=== PATIENT | male | born 1995 | race Caucasian/White ===

== ENCOUNTER 2017-05-21 15:09 | Emergency (ER) | payer SELFPAY ==
[~2017-05-21] VITALS: Ht 177.8 cm; Wt 82.0 kg
[2017-05-21 15:57] VITALS: BP 147/82; PULSE 98; RESP 18; TEMP 98.5; O2SAT 98
[2017-05-21 16:11] LABS: BASOPHIL # 0.1 TH/MM3 (0-0.2); BASOPHIL % 0.9 % (0.0-2.0); EOSINOPHIL # 0.1 TH/MM3 (0-0.4); EOSINOPHIL % 1.4 % (0.0-4.0); HEMATOCRIT 50.1 % (39.0-51.0); HEMO FLAGS DIFF FINAL; LYMPH % 33.9 % (9.0-44.0); LYMPHOCYTE # 3.5 TH/MM3 (1.0-4.8); MEAN CELL VOLUME 93.6 FL (80.0-100.0); MEAN CORPUSCULAR HEMOGLOBIN 32.6 PG (27.0-34.0); MEAN CORPUSCULAR HGB CONC 34.9 % (32.0-36.0); MONO % 5.6 % (0.0-8.0); NEUT % 58.2 % (16.0-70.0); PLATELET COUNT 234 TH/MM3 (150-450); RED BLOOD COUNT 5.35 MIL/MM3 (4.50-5.90); RED CELL DISTRIBUTION WIDTH 13.3 % (11.6-17.2); WHITE BLOOD COUNT 10.4 TH/MM3 (4.0-11.0)
[2017-05-21 16:37] LABS: BICARBONATE 22.2 MEQ/L (21.0-32.0); POTASSIUM 3.5 MEQ/L (3.5-5.1)
--- NOTE | 2017-05-21 16:52 | PD ---
HPI Chief Complaint: Psychiatric Symptoms Time Seen by Provider: 15:39 Travel History International Travel<30 days: No Contact w/Intl Traveler<30days: No Traveled to known affect area: No History of Present Illness HPI 22-year-old male presents to the emergency room under Adrian act initiated by police. Patient states he called a hotline to vent about his cheating on him. He was very depressed. Patient cut himself superficially multiple times on his left forearm. When asked if he did this to commit suicide, he said he was just doing it to prove a point. The next thing he knew, superintendent operations division were beating on his door and brought him to the ED. Denies suicidal or homicidal ideation. Denies any medical conditions. Denies any medical complaints. Denies any daily medications. Denies illicit drug use. Drinks alcohol occasionally. He had 5 beers today. PFSH Past Medical History Medical History: Denies Significant Hx Past Surgical History Surgical History: No Previous Surgery Social History Alcohol Use: Yes (OCC) Tobacco Use: No Substance Use: No Review of Systems Except as stated in HPI: all other systems reviewed are Neg Physical Exam Narrative GENERAL: Well-nourished, well-developed male in no acute distress. Afebrile. Ambulatory. SKIN: Focused skin assessment warm/dry. Multiple superficial abrasions to the left volar forearm. Nonbleeding. HEAD: Normocephalic. EYES: No scleral icterus. No injection or drainage. NECK: Supple, trachea midline. No JVD or lymphadenopathy. CARDIOVASCULAR: Regular rate and rhythm without murmurs, gallops, or rubs. RESPIRATORY: Breath sounds equal bilaterally. No accessory muscle use. PSYCHIATRIC: No delusional thought processes. No hallucinations. Depressed mood. Normal affect. Data Data Last Documented VS Vital Signs Date Time Temp Pulse Resp B/P (MAP) Pulse Ox O2 Delivery O2 Flow Rate FiO2 05/21/17 16:01 98 18 05/21/17 15:57 98.5 147/82 (103) 98 Orders Orders Complete Blood Count With Diff (05/21/17 15:39) Basic Metabolic Panel (Bmp) (05/21/17 15:39) Psych Screen (05/21/17 15:39) Drug Screen, Random Urine (05/21/17 15:39) Alcohol (Ethanol) (05/21/17 15:39) Labs Laboratory Tests Test 05/21/17 15:53 White Blood Count 10.4 TH/MM3 Red Blood Count 5.35 MIL/MM3 Hemoglobin 17.5 GM/DL Hematocrit 50.1 % Mean Corpuscular Volume 93.6 FL Mean Corpuscular Hemoglobin 32.6 PG Mean Corpuscular Hemoglobin Concent 34.9 % Red Cell Distribution Width 13.3 % Platelet Count 234 TH/MM3 Mean Platelet Volume 8.4 FL Neutrophils (%) (Auto) 58.2 % Lymphocytes (%) (Auto) 33.9 % Monocytes (%) (Auto) 5.6 % Eosinophils (%) (Auto) 1.4 % Basophils (%) (Auto) 0.9 % Neutrophils # (Auto) 6.0 TH/MM3 Lymphocytes # (Auto) 3.5 TH/MM3 Monocytes # (Auto) 0.6 TH/MM3 Eosinophils # (Auto) 0.1 TH/MM3 Basophils # (Auto) 0.1 TH/MM3 CBC Comment DIFF FINAL Differential Comment Blood Urea Nitrogen 9 MG/DL Creatinine 1.01 MG/DL Random Glucose 140 MG/DL Calcium Level 8.7 MG/DL Sodium Level 139 MEQ/L Potassium Level 3.5 MEQ/L Chloride Level 106 MEQ/L Carbon Dioxide Level 22.2 MEQ/L Anion Gap 11 MEQ/L Estimat Glomerular Filtration Rate 91 ML/MIN Urine Opiates Screen NEG Urine Barbiturates Screen NEG Urine Amphetamines Screen NEG Urine Benzodiazepines Screen NEG Urine Cocaine Screen NEG Urine Cannabinoids Screen NEG Ethyl Alcohol Level 265 MG/DL MDM Medical Decision Making Medical Screen Exam Complete: Yes Emergency Medical Condition: Yes Medical Record Reviewed: Yes Differential Diagnosis Mood disorder, personality disorder, suicidal ideation, polysubstance abuse Narrative Course 22-year-old male presents to the emergency room under Adrian act initiated by police department. Patient called the suicide? hotline complaining about his 's infidelity and abruptly ended the call. Shortly afterward, the police showed up at his door and took him into protective custody after they saw multiple superficial abrasions to his left wrist. States he cut his arms to prove a point. He denies suicidal or homicidal ideations at this time. Denies any psychiatric or medical history. No medical complaints. CBC, CMP, drug screen are unremarkable. Alcohol is moderately elevated. Patient is medically cleared for psychiatric evaluation. Diagnosis Primary Impression: Medical clearance for psychiatric admission Condition: Stable Dominga Torres May 21, 2017 16:52
[2017-05-21 18:09] VITALS: BP 132/96; PULSE 92; RESP 20; TEMP 98.8; O2SAT 98
--- NOTE | 2017-05-21 21:07 | PD ---
Physical Exam Date Seen by Provider: May 21, 2017 Time Seen by Provider: 21:05 Data Data Last Documented VS Vital Signs Date Time Temp Pulse Resp B/P (MAP) Pulse Ox O2 Delivery O2 Flow Rate FiO2 05/21/17 18:09 98.8 92 20 132/96 (108) 98 Orders Orders Complete Blood Count With Diff (05/21/17 15:39) Basic Metabolic Panel (Bmp) (05/21/17 15:39) Psych Screen (05/21/17 15:39) Drug Screen, Random Urine (05/21/17 15:39) Alcohol (Ethanol) (05/21/17 15:39) Labs Laboratory Tests Test 05/21/17 15:53 White Blood Count 10.4 TH/MM3 Red Blood Count 5.35 MIL/MM3 Hemoglobin 17.5 GM/DL Hematocrit 50.1 % Mean Corpuscular Volume 93.6 FL Mean Corpuscular Hemoglobin 32.6 PG Mean Corpuscular Hemoglobin Concent 34.9 % Red Cell Distribution Width 13.3 % Platelet Count 234 TH/MM3 Mean Platelet Volume 8.4 FL Neutrophils (%) (Auto) 58.2 % Lymphocytes (%) (Auto) 33.9 % Monocytes (%) (Auto) 5.6 % Eosinophils (%) (Auto) 1.4 % Basophils (%) (Auto) 0.9 % Neutrophils # (Auto) 6.0 TH/MM3 Lymphocytes # (Auto) 3.5 TH/MM3 Monocytes # (Auto) 0.6 TH/MM3 Eosinophils # (Auto) 0.1 TH/MM3 Basophils # (Auto) 0.1 TH/MM3 CBC Comment DIFF FINAL Differential Comment Blood Urea Nitrogen 9 MG/DL Creatinine 1.01 MG/DL Random Glucose 140 MG/DL Calcium Level 8.7 MG/DL Sodium Level 139 MEQ/L Potassium Level 3.5 MEQ/L Chloride Level 106 MEQ/L Carbon Dioxide Level 22.2 MEQ/L Anion Gap 11 MEQ/L Estimat Glomerular Filtration Rate 91 ML/MIN Urine Opiates Screen NEG Urine Barbiturates Screen NEG Urine Amphetamines Screen NEG Urine Benzodiazepines Screen NEG Urine Cocaine Screen NEG Urine Cannabinoids Screen NEG Ethyl Alcohol Level 265 MG/DL [facility] Medical Record Reviewed: Yes Supervised Visit with MANUEL: Yes Interpretation(s) Laboratory Tests Test 05/21/17 15:53 White Blood Count 10.4 TH/MM3 Red Blood Count 5.35 MIL/MM3 Hemoglobin 17.5 GM/DL Hematocrit 50.1 % Mean Corpuscular Volume 93.6 FL Mean Corpuscular Hemoglobin 32.6 PG Mean Corpuscular Hemoglobin Concent 34.9 % Red Cell Distribution Width 13.3 % Platelet Count 234 TH/MM3 Mean Platelet Volume 8.4 FL Neutrophils (%) (Auto) 58.2 % Lymphocytes (%) (Auto) 33.9 % Monocytes (%) (Auto) 5.6 % Eosinophils (%) (Auto) 1.4 % Basophils (%) (Auto) 0.9 % Neutrophils # (Auto) 6.0 TH/MM3 Lymphocytes # (Auto) 3.5 TH/MM3 Monocytes # (Auto) 0.6 TH/MM3 Eosinophils # (Auto) 0.1 TH/MM3 Basophils # (Auto) 0.1 TH/MM3 CBC Comment DIFF FINAL Differential Comment Blood Urea Nitrogen 9 MG/DL Creatinine 1.01 MG/DL Random Glucose 140 MG/DL Calcium Level 8.7 MG/DL Sodium Level 139 MEQ/L Potassium Level 3.5 MEQ/L Chloride Level 106 MEQ/L Carbon Dioxide Level 22.2 MEQ/L Anion Gap 11 MEQ/L Estimat Glomerular Filtration Rate 91 ML/MIN Urine Opiates Screen NEG Urine Barbiturates Screen NEG Urine Amphetamines Screen NEG Urine Benzodiazepines Screen NEG Urine Cocaine Screen NEG Urine Cannabinoids Screen NEG Ethyl Alcohol Level 265 MG/DL Differential Diagnosis MDM: High Differential diagnoses: Schizophrenia, schizoaffective disorder, bipolar, anxiety, depression, adjustment reaction, mood disorder NOS, ODD, depressive disorder NOS, dementia, dementia with agitation, psychosis NOS, substance induced mood disorder, DMDD, Asperger syndrome, infection,electrolyte abnormality, malingering. Narrative Course Mental health screening discussed with the patient. Psychiatric screen ordered. The patient's been evaluated by psychiatry. She is medically stable for discharge. She does not warrant inpatient treatment and management. Patient has been advised to be discharged. Diagnosis Primary Impression: Medical clearance for psychiatric admission Patient Instructions: General Instructions Additional Instruction: Follow-up with the recommendations of the psych screener. Return to the ER for any problems. Scripts No Active Prescriptions or Reported Meds Disposition: 01 DISCHARGE HOME Condition: Stable Garrett Stahl May 21, 2017 21:07
--- NOTE | 2017-05-21 21:17 | PD ---
History of Present Illness Chief Complaint: Psychiatric Symptoms Time Seen by Provider: 20:45 Travel History International Travel<30 Days: No Contact w/Intl Traveler<30days: No Known affected area: No Legal Status Legal Status: Adrian Act Adrian Act Signed By: Jaclyn Rincon History of Present Illness: History of Present Illness HPI 22-year-old male with no previous psychiatric history who presents to the emergency room under Adrian act initiated by police. The report alleges that the police responded to a call from a suicidal subject to had cut his arm. The patient reported to the police that he was feeling depressed due to recent breakup with his and finding out his was contacting other person 's. Patient had been drinking at the time and his blood alcohol level on arrival to the emergency department was 265. He admits to having consumed approximately 5 beers. Patient states he called a hotline to vent about his cheating on him. The patient was allowed to sober up and was monitored. No behavioral concerns and no suicidality. Electronic medical record reviewed and shows no previous contact with [facility] psychiatry Department. Patient is seen. He is calm, engaging, cooperative. He is clinically sober at this time. Speech is clear and he has no tremors, steady gait. The patient presents no disturbance of thought process or content. Denies any hallucinations, delusions or paranoia. He denies any significant symptoms of depression. Denies suicidal or homicidal ideation, intent or plan. He is cognitively intact. He tells me that he was trying to get his attention and that he considers what he did" a stupid mistake". He is requesting to be discharged and presents no criteria to remain under the Adrian act. His [id number] will pick him up and he will be staying with her tonight. PFSH Past Medical History Medical History: Denies Significant Hx Past Surgical History Surgical History: No Previous Surgery Psychiatric History Psychiatric History Hx Psychiatric Treatment: Denies any previous. No previous suicidal attempt. History of Inpatient Treatment: No Guns or firearms in home: No Social History male. Has been in relationship for 5 years and since January. Moved from [place] to [place] 2 months ago. Completed 11th grade. Currently unemployed. Hx Alcohol Use: Yes (OCC) Hx Tobacco Use: No Hx Substance Use: Yes Substance Use Type: Alcohol Other Substances Used: Drink fridays and saturdays Hx of Substance Use Treatment: No Family Psychiatric History Negative Allergies-Medications (Allergen,Severity, Reaction): Coded Allergies: No Known Allergies (Verified Allergy, Unknown, 05/21/17) Reported Meds & Prescriptions Reported Meds & Active Scripts Active No Active Prescriptions or Reported Medications Review of Systems Except as stated in HPI: all other systems reviewed are Neg Mental Status Examination Appearance: Appropriate Consciousness: Alert Orientation: x4 Motor Activity: Normal gait Speech: Unremarkable Language: Adequate Fund of Knowledge: Adequate Attention and Concentration: Adequate Memory: Unremarkable Mood: Appropriate Affect: Appropriate Thought Process & Associations: Intact Thought Content: Appropriate Hallucination Type: None Delusion Type: None Suicidal Ideation: No Suicidal Plan: No Suicidal Intention: No Homicidal Ideation: No Homicidal Plan: No Homicidal Intention: No Insight: Adequate Judgment: Impulsive MDM Medical Decision Making Medical Record Reviewed: Yes Assessment/Plan 22-year-old male with no previous psychiatric history who presents to the emergency room under Adrian act initiated by police. The report alleges that the police responded to a call from a suicidal subject to had cut his arm. The patient reported to the police that he was feeling depressed due to recent breakup with his and finding out his was contacting other person 's. Patient had been drinking at the time and his blood alcohol level on arrival to the emergency department was 265. He admits to having consumed approximately 5 beers. Patient states he called a hotline to vent about his cheating on him. The patient was allowed to sober up and was monitored. No behavioral concerns and no suicidality. The patient denies any suicidal or homicidal ideation, intent or plan. He is future oriented with adequate protective factors. States he is looking forward to his mother moving to [place] in September. He has good support from his [id number] will be picking him up from the hospital. There is no evidence of any unstable mental illness as defined under the Adrian act. He does not meet criteria to remain under the Adrian act. He is requesting to be discharged. Patient is psychiatrically clear for discharge from ED. Orders Orders Complete Blood Count With Diff (11/21/17 15:39) Basic Metabolic Panel (Bmp) (05/21/17 15:39) Psych Screen (05/21/17 15:39) Drug Screen, Random Urine (05/21/17 15:39) Alcohol (Ethanol) (05/21/17 15:39) Results Vital Signs Date Time Temp Pulse Resp B/P (MAP) Pulse Ox O2 Delivery O2 Flow Rate FiO2 05/21/17 21:06 05/21/17 18:09 98.8 92 20 132/96 (108) 98 05/21/17 16:01 98 18 05/21/17 15:57 98.5 98 18 147/82 (103) 98 Laboratory Tests Test 05/21/17 15:53 White Blood Count 10.4 Red Blood Count 5.35 Hemoglobin 17.5 Hematocrit 50.1 Mean Corpuscular Volume 93.6 Mean Corpuscular Hemoglobin 32.6 Mean Corpuscular Hemoglobin Concent 34.9 Red Cell Distribution Width 13.3 Platelet Count 234 Mean Platelet Volume 8.4 Neutrophils (%) (Auto) 58.2 Lymphocytes (%) (Auto) 33.9 Monocytes (%) (Auto) 5.6 Eosinophils (%) (Auto) 1.4 Basophils (%) (Auto) 0.9 Neutrophils # (Auto) 6.0 Lymphocytes # (Auto) 3.5 Monocytes # (Auto) 0.6 Eosinophils # (Auto) 0.1 Basophils # (Auto) 0.1 CBC Comment DIFF FINAL Differential Comment Blood Urea Nitrogen 9 Creatinine 1.01 Random Glucose 140 Calcium Level 8.7 Sodium Level 139 Potassium Level 3.5 Chloride Level 106 Carbon Dioxide Level 22.2 Anion Gap 11 Estimat Glomerular Filtration Rate 91 Urine Opiates Screen NEG Urine Barbiturates Screen NEG Urine Amphetamines Screen NEG Urine Benzodiazepines Screen NEG Urine Cocaine Screen NEG Urine Cannabinoids Screen NEG Ethyl Alcohol Level 265 Diagnosis Primary Impression: Substance induced mood disorder Psychiatrically Cleared: Yes Patient Instructions: General Instructions Additional Instructions: Follow-up with the recommendations of the psych screener. Return to the ER for any problems. Med/ Other Pt Specific Info: No Meds Exist/No RX given Prescriptions No Active Prescriptions or Reported Meds Disposition: 01 DISCHARGE HOME Condition: Stable Emma Coleman [employer] May 21, 2017 21:17
== END 2017-05-21 21:20 | disposition home or self-care (01) ==
LOC: NETRI 15:09 → NEPJ 21:20
DX: F19.94 Other psychoactive substance use, unspecified with psychoactive substance-induced mood disorder (principal); S60.812A Abrasion of left wrist, initial encounter
CPT/HCPCS: 80048; 80307; 85025; 99284